=== PATIENT | male | born 1985 | race African-American/Black ===

== ENCOUNTER 2016-06-10 22:26 | Emergency (ER) | payer OTHER | END 2016-06-10 22:27 | disposition home or self-care (01) | LOC: CFTX 22:26 | DX: S30.1XXA Contusion of abdominal wall, initial encounter (principal); M10.9 Gout, unspecified; X50.0XXA Overexertion from strenuous movement or load, initial encounter; Y92.69 Other specified industrial and construction area as the place of occurrence of the external cause; Y99.0 Civilian activity done for income or pay | CPT/HCPCS: 99283 ==

== ENCOUNTER 2016-06-19 22:37 | Emergency (ER) | payer BC, OTHER | END 2016-06-19 22:47 | disposition home or self-care (01) | LOC: CFTX 22:37 | DX: L02.11 Cutaneous abscess of neck (principal); F17.210 Nicotine dependence, cigarettes, uncomplicated | CPT/HCPCS: 10060; 87070; 87205; 99283 ==

== ENCOUNTER 2016-07-21 11:27 | Emergency (ER) | payer BC, OTHER ==
--- NOTE | ~2016-07-21 | EKG ---
PATIENT: SAMSON ESPINOSA UNIT #: [id number] Ventricular Rate: 73 BPM Atrial Rate: 73 BPM P-R Interval: 148 ms QRS Duration: 84 ms Q-T Interval: 360 ms QTC Calculation(Bezet): 396 ms P [place]: 44 degrees Calculated R [place]: 98 degrees Calculated T [place]: 24 degrees Diagnosis Line: Normal sinus rhythm Diagnosis Line: Rightward axis Diagnosis Line: Borderline ECG Diagnosis Line: No previous ECGs available Diagnosis Line: Confirmed by NASIMA DICKEY MD ([id number]) on 07/21/2016 Diagnosis Line: 4:13:23 PM INTERPRETING MD: KELI ORDOÑEZ
--- NOTE | ~2016-07-21 | CR2 ---
[facility] A Service of [facility] & [facility] RADIOLOGY TEXT RESULTS PATIENT: SAMSON ESPINOSA LOCATION: [facility] : 85 UNIT #: [id number] AGE: [address]: Bhavna Ramos MD SEX: M ORDER DR: [id number] [facility] [address] [place], [place] [address] [id number] E MR#: [id number] Acc #: [id number] NAME: SAMSON ESPINOSA : 1985 SEX: M STUDY DATE/TIME: 07/21/2016 12:08 UNIT: [facility] ROOM: STUDY DESCRIPTION: CR Abdomen Acute Series Attending Physician: Bhavna Ramos M.D. Ordering Physician: Bhavna Ramos M.D. Primary Care Physician: Primary Care Physician No MEDICAL IMAGING REPORT This report is preliminary unless electronic signature is present EXAM Acute abdomen series 07/21/2016 HISTORY 30-year-old male with upper abdominal pain beginning yesterday. Comparison none. FINDINGS Frontal chest and 3 flat and upright views of the abdomen. 4 total images. The lungs and pleural spaces are clear. No pneumothorax. Heart size and mediastinum within normal limits. Pulmonary vasculature unremarkable. Bowel gas pattern is nonobstructive. No free intraperitoneal air. No pathologic calcifications. No acute bony abnormality. IMPRESSION Negative acute abdomen series. Dictated by... Félix Martins M.D. THIS IS AN ELECTRONICALLY VERIFIED REPORT Félix Martins M.D. at 07/22/2016 4:46 PM Ade TD: 07/21/2016 15:17 JOB #: [id number] MEDICAL IMAGING REPORT Page 1 of 1 COPY
[2016-07-21 11:55] LABS: BASOPHIL# 0.1 X10e3 (0-0.3); BASOPHIL% 0.7 % (0-2.5); EOSINOPHIL# 0.1 X10e3 (0-0.7); EOSINOPHIL% 1.5 % (0.0-7.0); HEMOGLOBIN 15.8 gm/dL (13.0-16.0); LYMPHOCYTE# 1.6 X10e3 (1.0-3.5); LYMPHOCYTE% 18.2 % (17.0-45.0); MEAN CELL VOLUME 81.4 FL (83-96); MEAN CORPUSCULAR HEMOGLOBIN 26.8 PG (28-34); MEAN CORPUSCULAR HGB CONC 32.9 g/dL (30-36); MEAN PLATELET VOLUME 7.8 FL (6.5-11.5); MONOCYTE# 0.8 X10e3 (0-1.0); MONOCYTE% 9.1 % (3.0-12.0); NEUTROPHIL% 70.5 % (40-75); PLATELET COUNT 248 X10e3 (140-420); RED CELL DISTRIBUTION WIDTH 14.8 % (11.0-15.5); WHITE BLOOD COUNT 8.6 X10e3 (4.0-10.5)
[2016-07-21 11:57] LABS: DIFF IND NO
[2016-07-21 12:06] LABS: POC - CKMB <1.0 ng/mL (0.0-7.9); POC - TROPONIN <0.05 ng/mL (<=0.05)
[2016-07-21 12:18] LABS: ALBUMIN SERUM 4.4 g/dL (3.5-5.0); ALKALINE PHOSPHATASE 65 U/L (32-92); ALT (SGPT) 24 U/L (10-40); AMYLASE 27 U/L (0-46); AST (SGOT) 26 U/L (10-42); BILIRUBIN, DIRECT 0.1 mg/dL (0.0-0.2); BILIRUBIN,INDIRECT 0.3 mg/dL (0.0-0.9); BILIRUBIN,TOTAL 0.4 mg/dL (0.2-2.0); BLOOD UREA NITROGEN 14 mg/dL (9-23); CALCIUM SERUM 9.6 mg/dL (8.4-10.2); CARBON DIOXIDE 24 mmol/L (22-31); CHLORIDE 106 mmol/L (100-111); GLOM FILT RATE Estimated 116.5 mL/min (>60); GLUCOSE FASTING 89 mg/dL (70-110); LIPASE 27 U/L (22-51); POTASSIUM 3.8 mmol/L (3.5-5.1); PROTEIN TOTAL SERUM 7.8 g/dL (6.0-8.3); SODIUM 138 mmol/L (135-145)
[2016-07-21 12:19] LABS: ALCOHOL BLOOD <5 mg/dL ([, 0])
[2016-07-21 12:27] LABS: URINE SOURCE CLEAN CATCH
[2016-07-21 12:29] LABS: URINE APPEARANCE CLOUDY; URINE BILIRUBIN NEG (NEG); URINE BLOOD NEG (NEG); URINE COLOR YELLOW; URINE GLUCOSE NEG (NEG); URINE KETONE NEG (NEG); URINE LEUKOCYTE ESTERASE NEG (NEG); URINE NITRATE NEG (NEG); URINE PROTEIN NEG (NEG)
[2016-07-21 12:34] LABS: CULTURE INDICATED? NO
[2016-07-21 12:40] LABS: AMPHETAMINE NEG (NEG); BARBITURATES NEG (NEG); BENZODIAZEPINES NEG (NEG); COCAINE NEG (NEG); MARIJUANA NEG (NEG); OPIATES NEG (NEG); TRICYCLIC ANTIDEPRESSANTS NEG (NEG); U METHADONE NEG (NEG)
[2016-07-21 13:21] LABS: POC - CKMB <1.0 ng/mL (0.0-7.9); POC - TROPONIN <0.05 ng/mL (<=0.05)
== END 2016-07-21 13:51 | disposition home or self-care (01) ==
LOC: CED 11:27
PROVIDERS: Student in an Organized Health Care Education/Training Program
DX: K21.9 Gastro-esophageal reflux disease without esophagitis (principal); F17.200 Nicotine dependence, unspecified, uncomplicated
CPT/HCPCS: 36415; 74022; 80048; 80076; 80307; 81003; 82150; 82553; 83690; 84484; 85025; 93005; 96361; 96374; 96375; 99284; C9113; G0480; J2405

== ENCOUNTER 2016-11-26 02:02 | Emergency (ER) | payer BC ==
--- NOTE | ~2016-11-26 | CR127 ---
[facility] A Service of [facility] & [facility] RADIOLOGY TEXT RESULTS PATIENT: SAMSON ESPINOSA LOCATION: [facility] : 85 UNIT #: [id number] AGE: [address]: Antoni Watters MD SEX: M ORDER DR: [id number] [facility] [address] [place], [place] [address] [id number] E MR#: [id number] Acc #: [id number] NAME: SAMSON ESPINOSA : 1985 SEX: M STUDY DATE/TIME: 11/26/2016 05:39 UNIT: [facility] ROOM: STUDY DESCRIPTION: CR Foot Complete Min 3 View Rt Attending Physician: Antoni Watters M.D. Ordering Physician: Sam Causey Aprn Primary Care Physician: Primary Care Physician No MEDICAL IMAGING REPORT This report is preliminary unless electronic signature is present EXAM Right foot, 11/26 at 05:39 INDICATION Increasing right foot pain after missing a step 3 days ago. FINDINGS 3 views of the right foot were obtained. No comparison. No acute fractures are identified. There is relative sclerosis around the first MTP joint and there is some erosions as well as some osteophytes at the same joint. There is also fairly significant spurring at the interphalangeal joint of the great toe. There does appear to be overlying soft tissue swelling. Correlate clinically for history of gout. IMPRESSION Abnormality at the first MTP joint great toe. Some of this could be secondary to gout as there is also some overlying soft tissue swelling. Correlate clinically. No acute fractures are identified in the foot. Dictated by... Dayton Sánchez Jr., M.D. THIS IS AN ELECTRONICALLY VERIFIED REPORT Dayton Sánchez Jr., M.D. at 11/26/2016 9:21 PM DARNELL/joy TD: 11/26/2016 15:14 JOB #: [id number] MEDICAL IMAGING REPORT Page 1 of 1 COPY
== END 2016-11-26 07:00 | disposition home or self-care (01) ==
LOC: CED 02:02
DX: S93.521A Sprain of metatarsophalangeal joint of right great toe, initial encounter (principal); F17.200 Nicotine dependence, unspecified, uncomplicated; X50.1XXA Overexertion from prolonged static or awkward postures, initial encounter; Y92.009 Unspecified place in unspecified non-institutional (private) residence as the place of occurrence of the external cause
CPT/HCPCS: 29405; 73630; 99283